=== PATIENT | male | born 2000 | race Two or more races ===

== ENCOUNTER 2022-01-05 17:37 | Emergency (ER) | payer SELFPAY ==
[~2022-01-05] VITALS: Ht 170.2 cm; Wt 81.8 kg
[2022-01-05 17:46] VITALS: BP 159/92
[2022-01-05] MEDS ORDERED: AMOX1TAB16 PO (18:36)
[2022-01-05] MEDS ORDERED: AMOX TR/POT CLAV 875 MG/125 MG TABLET PO ONE (18:45)
== END 2022-01-05 18:54 | disposition home or self-care (01) ==
LOC: EMS 17:40
DX: H66.91 Otitis media, unspecified, right ear (principal); I10 Essential (primary) hypertension; F12.90 Cannabis use, unspecified, uncomplicated
CPT/HCPCS: 99283